=== PATIENT | male | born 1985 | race Two or more races ===

== ENCOUNTER 2025-01-31 22:48 | Emergency (ER) | payer OTHER ==
[~2025-01-31] VITALS: Ht 162.6 cm; Wt 65.8 kg
[2025-01-31] MEDS ORDERED: AZIT250T PO (23:49)
[2025-01-31] MEDS ORDERED: AZITHROMYCIN 250 MG TABLET ONE (23:51)
[2025-01-31] MEDS: AZITHROMYCIN 250 MG TABLET PO ONE (23:57)
[2025-02-01 01:07] VITALS: BP 135/89; TEMP 98; O2SAT 98
== END 2025-02-01 01:08 ==
LOC: ER 22:54
DX: Z02.89 Encounter for other administrative examinations (principal); J18.9 Pneumonia, unspecified organism; E11.9 Type 2 diabetes mellitus without complications; I10 Essential (primary) hypertension; Z65.3 Problems related to other legal circumstances
CPT/HCPCS: 71045-TC